=== PATIENT | female | born 1975 ===

== ENCOUNTER 2016-12-09 08:34 | Emergency (ER) | payer OTHER ==
[2016-12-09 08:37] VITALS: BMI 28.3
[2016-12-09 08:39] VITALS: BP 129/88; PULSE 93; RESP 19; TEMP 98.5; O2SAT 99
--- NOTE | 2016-12-09 08:54 | ED PDOC ---
HPI: Female Pain Time Seen by Provider: 12/09/16 08:41 History Per: Patient (Left flank pain x 3 days. No fever. Nonradiating. Also c/ o vaginal discomfort. Has been using ? vaginal cream since Sat with no improvement. No NVD) Onset/Duration Of Symptoms: Days (3) Current Symptoms Are (Timing): Still Present Severity: Mild Pain Scale Rating Of: 2 Quality Of Discomfort: Aching Associated Symptoms: Urinary Symptoms. denies: Fever, Nausea, Vomiting, Diarrhea Past Medical History Vital Signs: Last Vital Signs Temp 98.5 F 12/09/16 08:37 Pulse 93 H 12/09/16 08:37 Resp 19 12/09/16 08:37 BP 129/88 12/09/16 08:37 Pulse Ox 99 12/09/16 08:37 - Medical History PMH: Diabetes Denies: Chronic Kidney Disease - Family History Family History: States: Unknown Family Hx - Home Medications Home Medications: Ambulatory Orders Medication Instructions Recorded Meclizine HCl [Meclizine HCl] 1 tab PO Q6 PRN #20 tab 04/28/14 Ciprofloxacin HCl [Cipro] 500 mg PO BID #20 tab 12/09/16 Miconazole Nitrate [Monistat 3] 24 gm VG DAILY #3 cmb.pf.crm 12/09/16 Tamsulosin [Flomax] 0.4 mg PO DAILY #6 cap 12/09/16 traMADol [Ultram] 50 mg PO Q8 #10 tab 12/09/16 - Allergies Allergies/Adverse Reactions: Allergies Allergy/AdvReac Type Severity Reaction Status Date / Time No Known Allergies Allergy Verified 04/27/14 23:11 Review of Systems Constitutional: Negative for: Fever Gastrointestinal: Negative for: Abdominal Pain Genitourinary Female: Positive for: Vaginal Discharge. Negative for: Dysuria, Frequency Musculoskeletal: Positive for: Back Pain Physical Exam - Physical Exam Appears: Positive for: Non-toxic, No Acute Distress Skin: Positive for: Normal Color, Warm, DRY Gastrointestinal/Abdominal: Positive for: Bowel Sounds, Soft, Tenderness Pelvic Exam: Positive for: Discharge (Thick white discharge in vault). Negative for: External Exam Normal (Erythema ext labia), Tender W/Cervical Motion, Tender Adnexa Back: Positive for: Normal Inspection. Negative for: L CVA Tenderness, R CVA Tenderness, Vertebral Tenderness - ECG O2 Sat by Pulse Oximetry: 99 Disposition - Clinical Impression Clinical Impression: Vaginal candidiasis, Kidney stone - Patient ED Disposition Is Patient to be Admitted: No Counseled Patient/Family Regarding: Studies Performed, Diagnosis, Need For Followup, Rx Given - Disposition [facility] Pedrito Grace Jr., MD [Staff Provider] - Disposition: Routine/Home Disposition Time: 09:23 Condition: FAIR Prescriptions: Ciprofloxacin HCl [Cipro] 500 mg PO BID #20 tab Miconazole Nitrate [Monistat 3] 24 gm VG DAILY #3 cmb.pf.crm Tamsulosin [Flomax] 0.4 mg PO DAILY #6 cap traMADol [Ultram] 50 mg PO Q8 #10 tab Instructions: Vulvovaginal Candidiasis (ED), Kidney Stones (ED)
--- NOTE | 2016-12-09 10:13 | CT ---
PROCEDURE: CT Abdomen and Pelvis without contrast. HISTORY: r/o kidney stone COMPARISON: 11/23/2008 TECHNIQUE: Contiguous axial images of the abdomen and pelvis. No oral or IV contrast given. Coronal and Sagittal reformats generated. Please note that due to lack of intravenous and oral contrast, evaluation of soft tissue structures and bowel is limited. Radiation dose: Total exam DLP = 707.16 mGy-cm. This CT exam was performed using one or more of the following dose reduction techniques: Automated exposure control, adjustment of the mA and/or kV according to patient size, and/or use of iterative reconstruction technique. FINDINGS: LOWER THORAX: Unremarkable. LIVER: No gross lesion or ductal dilatation. Punctate calcification in the liver. GALLBLADDER AND BILE DUCTS: Unremarkable. PANCREAS: Unremarkable. No mass. No ductal dilatation. SPLEEN: Unremarkable. No splenomegaly. ADRENALS: Unremarkable. KIDNEYS AND URETERS: Unremarkable right kidney without evidence of significant hydronephrosis. The left kidney demonstrates hydronephrosis (mild to moderate) with a radiopaque calculus seen in the proximal left ureter, measuring approximately 6 millimeters. Additional punctate calculus seen in the interpolar segment on the left. Underlying infection cannot be excluded. Mild enlargement and stranding surrounding the left kidney. BLADDER: Pneumonia distended urinary bladder limiting evaluation. REPRODUCTIVE: Please note that evaluation of gynecologic organs is not optimal on CT imaging. Surgical clip in the left adnexa. APPENDIX: Unremarkable. BOWEL: Minimal diverticulosis without evidence of diverticulitis. No bowel obstruction. PERITONEUM: Unremarkable. No fluid collection. No free air. LYMPH NODES: Unremarkable. No enlarged lymph nodes. VASCULATURE: Unremarkable. No aortic aneurysm. BONES: No fracture or destructive lesion. OTHER FINDINGS: None. IMPRESSION: Approximately 6 millimeter radiopaque calculus in the proximal left ureter with associated mild to moderate hydronephrosis and perinephric stranding. Underlying infection cannot be excluded. Other findings as above. Discussed with approximate 10:15 a.m. on 12/09/2016.
== END 2016-12-09 10:34 | disposition home or self-care (01) ==
LOC: H.ER 08:34
DX: B37.3 Candidiasis of vulva and vagina (principal); N20.0 Calculus of kidney; N20.1 Calculus of ureter; E11.9 Type 2 diabetes mellitus without complications